=== PATIENT | female | born 1960 | race African-American/Black ===

== ENCOUNTER 2021-07-01 09:55 | Emergency (ER) | payer SELFPAY ==
[~2021-07-01] VITALS: Ht 162.6 cm; Wt 107.0 kg
[~2021-07-01 09:55] MED LIST: COUGH MEDICINE PO; SINGULAIR10 MG PO; VENTOLIN HFA18 GM INH
== END 2021-07-01 10:49 | disposition home or self-care (01) ==
LOC: ER 10:30
DX: M79.672 Pain in left foot (principal); I83.892 Varicose veins of left lower extremity with other complications; I10 Essential (primary) hypertension; J45.909 Unspecified asthma, uncomplicated
CPT/HCPCS: 99283